=== PATIENT | male | born 1955 | race Caucasian/White ===

== ENCOUNTER 2019-06-09 16:07 | Emergency (ER) | payer OTHER, SELFPAY ==
[2019-06-09 16:08] VITALS: BP 188/81; PULSE 78; RESP 16; TEMP 36.6; O2SAT 96; BMI 30.5
--- NOTE | 2019-06-09 16:11 | EKG12_ITS ---
Test Reason : CP Blood Pressure : / mmHG Vent. Rate : 070 BPM Atrial Rate : 070 BPM P-R Int : 148 ms QRS Dur : 090 ms QT Int : 378 ms P-R-T Axes : 037 010 -05 degrees QTc Int : 408 ms Normal sinus rhythm Possible Left atrial enlargement Left ventricular hypertrophy Abnormal ECG Confirmed by SALLY CERVANTES, KIMBERLY ([id number]), news video editor SAURABH LOMELI ([id number]) on 06/13/2019 2:07:44 PM Referred By: PERRI/SUKH Confirmed By:LORRAINE ZAVALA MD
--- NOTE | 2019-06-09 16:20 | RAD_ITS ---
STUDY: X-RAY CHEST REASON FOR EXAM: Male, 63 years old. Chest pain for 2 hours TECHNIQUE: Single frontal view of the chest. COMPARISON: None. FINDINGS: The lungs are clear and expanded. There is no demonstrated pleural abnormality. Normal size heart. Normal mediastinum and bimal. Normal visualized pulmonary arteries. Normal visualized aortic arch and descending thoracic aorta. Normal visualized thoracic spine. Normal visualized ribs, clavicles, and shoulders. There is no demonstrated abnormality of the visualized soft tissue structures of the upper abdomen. RAD/Chest 1 View (Portable) IMPRESSION: Normal x-ray examination of the chest. Electronically Signed: Haim Andrew MD at 16:34 EDT Tel , Service support ,
[2019-06-09 16:24] VITALS: BP 174/89; PULSE 71; RESP 22; O2SAT 2; O2SAT 97
[2019-06-09 16:28] LABS: Absolute Neutrophil Count 7.4 X10^3/uL (2.0-7.7); Basophil# 0.03 X10^3/uL; Basophil% 0.3 % (0-1); Eosinophil# 0.02 X10^3/uL; Eosinophils% 0.2 % (0-5); Hematocrit 43.3 % (40-54); Hemoglobin 14.7 g/dL (13.0-16.5); Lymphocyte % 11.7 % (19-41); Mean Corp Hgb Conc 33.9 g/dL (32-36); Mean Corpuscular Hgb 31.5 pg (27.0-32.0); Mean Corpuscular Volume 92.9 fL (80-94); Mean Platelet Vol. 8.9 fl (6.2-12.0); Monocyte# 0.82 X10^3/uL; Monocyte% 8.7 % (0-10); NRBC Flagged by Analyzer 0 % (0-5); Neutrophil # 7.42 X10^3/uL (2.7-7.7); Neutrophil % 78.8 % (47-70); Platelet Count 271 K/mm3 (150-450); RBC Distribution Width CV 12.5 % (11.6-14.6); RBC Distribution Width SD 42.9 fl (35.1-43.9); Red Blood Count 4.66 M/mm3 (4.6-6.2); White Blood Count 9.4 K/mm3 (4.4-11.0)
[2019-06-09] MEDS: Aspirin 81 MG TAB.CHEW 162 MG PO (16:51)
[2019-06-09 16:52] LABS: Anion Gap 6 (5-15); BUN 29 mg/dL (7-18); BUN/Creat Ratio 23.2 RATIO (10-20); Calcium,Total 9.4 mg/dL (8.5-10.1); Chloride 105 mmol/L (98-107); Creatinine, Serum 1.25 mg/dL (0.70-1.30); EST Glomerular Filtration Rate 62 mL/min (>60); Est Glom Filt Rate - Afr Amer 75 mL/min (>60); Estimated Creatinine Clearance 66.39 ml/min; Glucose 93 mg/dL (74-106); Potassium 4.3 mmol/L (3.5-5.1); Sodium Level 138 mmol/L (136-145)
[2019-06-09 17:11] VITALS: BP 158/91; PULSE 67; RESP 23; O2SAT 97
--- NOTE | 2019-06-09 17:15 | ED.DCSUM_ITS ---
- ER Visit Summary Date of Service: 06/09/19 Chief Complaint: Chest pain History of Present Illness: The patient is a 63 M with no primary care physician. He reports that approximately 2 hours ago while undergoing heavy exertion on a bike race he developed a left-sided aching, heaviness that was 5 out of 10 in severity. This lasted minutes and resolved with rest. He then tried to begin riding again and the pain returned. He is pain-free currently. States that the pain radiated down his left arm. He denies any associated nausea, vomiting, diaphoresis, shortness of breath. 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 States that his post performance has been down and he has not felt himself for 2 weeks. He is 1 to 2 mph slow over the past 2 to 3 months. However, he had not had chest pain prior to this. He reports that he is doing a ride across [place] and that he has done this multiple times in the past without chest pain. He has high blood pressure as his only risk factor for coronary artery disease. Physical Examination: Vitals: Stable. Afebrile. General: Well-nourished and well-developed. Head: Normocephalic atraumatic. Neck: Supple, no lymphadenopathy. No JVD. Nontender. Cardiovascular: Regular rate and rhythm. No murmurs. Respiratory: No respiratory distress. Clear to auscultation bilaterally. Abdominal: Soft, nontender, nondistended, normal bowel sounds. No guarding, rebound, or peritoneal signs. Back: Nontender. Extremities: Nontender, no edema. Skin: Normal color, no rash. Neurologic: Alert and oriented ?3. Cranial nerves II through XII are intact. Normal strength and sensation. Psych: Normal affect. Test Results: EKG is sinus at 70 with a Favian alert version in lead III. There are no ischemic changes. There is no EKG for comparison. Initial troponin is negative. Chem-7 shows a BUN of 29. CBC shows segmented neutrophils 79 lymphocytes of 12. Chest x-ray is normal. Emergency Department Course and Treatment: Patient was treated with aspirin. He is resting comfortably and is pain-free. Treatment Plan: Patient is from [place] and is asking for transfer back down to [facility]. He was discussed with the hospitalist there and will be transferred for further evaluation and treatment. Disposition: Transferred in stable condition. Impression: 1. Chest pain, exertional. 2. MAUREEN score 1. This note was generated with [employer] dictation software. It may contain incorrect words, spelling, and punctuation that were not noted in review of the chart prior to signing ED Disposition - Plan for ED Patient: Disposition: [facility] Referrals: [facility],Out of [Primary Care Provider] -
[2019-06-09 18:10] VITALS: BP 156/88; PULSE 88; RESP 18; O2SAT 96
[2019-06-09 18:30] VITALS: BP 158/66; PULSE 88; RESP 17; O2SAT 98
--- NOTE | 2019-06-09 18:38 | ED.RN ---
PT GIVEN WRITTEN AND VERBAL TRANSFER INSTRUCTIONS AND TRANSFER PACKET. PT IV D/C AND COVERED WITH 2X2 GAUZE AND PAPER TAPE. PT TO DRIVE PT TO [facility]. DIRECTIONS AND ADDRESS GIVEN. PT AND VERBALIZE UNDERSTANDING AND DENY ANY FURTHER QUESTIONS.
== END 2019-06-09 18:39 | disposition short-term general hospital (02) ==
LOC: ED 17:00
PROVIDERS: Emergency Provider Emergency Medicine
DX: R07.9 Chest pain, unspecified (principal); I10 Essential (primary) hypertension
CPT/HCPCS: 71045; 80048; 84484; 85025; 93005; 99284; A4216